=== PATIENT | female | born 1990 | race Caucasian/White ===

== ENCOUNTER 2020-08-15 15:58 | Emergency (ER) | payer BC, MEDICAID ==
[2020-08-15] MEDS ORDERED: Sodium Chloride 0.9% 1,000 ML IV ONE (16:12)
[2020-08-15 17:10] LABS: BLOOD UREA NITROGEN,BUN 7 mg/dL (7.0-18.0); CARBON DIOXIDE,CO2 25.5 mmol/L (21.0-32.0); CHLORIDE,CL 101 mmol/L (98-107); GLUCOSE RANDOM 94 mg/dL (74-106); LIPASE 49 U/L (73-393); POTASSIUM,K 4.2 mmol/L (3.5-5.1); SODIUM,NA 136 mmol/L (136-145)
--- NOTE | 2020-08-15 17:36 | US ---
INDICATION: Left-sided pain. Early TECHNIQUE: Ultrasound OB pelvis transvaginal. Real-time rouse-scale imaging of the pelvis was performed. COMPARISON: None available FINDINGS: There is an intrauterine gestational sac with a mean sac diameter corresponding to 6 weeks and 0 days. A yolk sac is seen, measuring 7 mm. No pole is seen. The right ovary measures 3.2 x 1.9 x 2.4 cm and the left ovary measures 3.3 x 3.6 x 4.2 cm, containing a 2.7 x 2.5 x 2.6 cm cyst which demonstrates apparent low-level internal echoes, likely a hemorrhagic corpus luteum cyst. Bilateral ovarian Doppler flow is documented. Tiny fluid echogenicity posterior to the lower cervix could represent free-fluid or may be related to regional bowel. IMPRESSION: An intrauterine gestational sac with a mean sac diameter corresponding to 6 weeks and 0 days. A prominent yolk sac measuring 7 mm. No pole seen. The findings could represent an anembryonic gestation or an early intrauterine gestation. Recommend correlation with beta hCG levels and a short-term follow-up study. A 2.6 cm left ovarian hemorrhagic corpus luteum cyst. Dictated by Diallo Scott MD @ Aug 15 2020 5:25PM Signed by Dr. Diallo Scott @ Aug 15 2020 5:34PM
[2020-08-15] MEDS ORDERED: Ampicillin/Sulbactam Na 1.5 GM in Sodium Chloride 0.9% 50 ML IV ONE (19:05)
--- NOTE | 2020-08-15 19:38 | EDM.PDOC ---
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 Patient states she has been having some left-sided lower pelvic discomfort and went to [place] today to be evaluated. Patient states that she did not know she was and during her evaluation today and was instructed that since she was having left lower pelvic pain she needed to get an ultrasound to rule out an ectopic . Patient denies any vaginal bleeding. Patient was given 2 mg of Dilaudid prior to leaving [place]. Patient states that she does not desire this and is requesting for me to "give her an " or "praying its an ectopic." Patient states she has also had a history of ruptured cysts in the past which felt similar to her symptoms today. Patient also complains of slight burning with urination. Denies any other symptoms or concerns. Patient denies fever, chills, chest pain, shortness of breath, or cough. Denies headache, neck stiff ness, change in vision, syncope, or near syncope. Denies nausea, vomiting, diarrhea, constipation. Has not noted any blood in urine or stool. Patient has been eating and drinking appropriately. Review of systems: As per history of present illness and below otherwise all systems reviewed and negative. Past medical history: As per history of present illness and as reviewed below otherwise noncontributory. Surgical history: As per history of present illness and as reviewed below otherwise noncontributory. Social history: See social history for further information Family history: As per history of present illness and as reviewed below otherwise noncontributory. Physical exam: General: Patient is alert, oriented, and in no acute distress. Patient laying comfortably on exam table. HEENT: Atraumatic, normocephalic, pupils equal and reactive bilaterally, negative for conjunctival pallor or scleral icterus, mucous membranes moist, TMs normal bilaterally, throat clear, neck supple, nontender, trachea midline. No drooling or trismus noted. No meningeal signs. No hot potato voice noted. Lungs: Clear to auscultation, breath sounds equal bilaterally, chest nontender. Heart: S1S2, regular rate and rhythm without overt murmur Abdomen: Soft, nondistended, nontender. Negative for masses or hepatosplenomegaly. Negative for costovertebral tenderness. Pelvis: Stable nontender. Genitourinary: Pulp Beater at bedside Shaina Mike. External genitalia grossly unremarkable. There is a small amount of white discharge in the vaginal vault. Negative cervical motion tenderness. Patient does have some mild discomfort of the left adnexa. Rectal: Deferred. Skin: Intact, warm, dry. No lesions or rashes noted. Extremities: Atraumatic, negative for cords or calf pain. Neurovascular unremarkable. Neuro: Awake, alert, oriented. Cranial nerves II through XII unremarkable. Cerebellum unremarkable. Motor and sensory unremarkable throughout. Exam nonfocal. Notes: Transvaginal ultrasound does show an intrauterine gestational sac, a prominent yolk sac, no pole seen. This could represent an early intrauterine gestation versus an embryonic gestation. Discussed with patient the importance for establishing care and following up with an PATIENT CARE TECHNICIAN INSTRUCTOR provider/ Patient is adamantly requesting me to "perform an " which I thoroughly discussed with patient that I will not be doing this today. Patient will be discharged with further information/resources in regards to this desire. Patient also has a 2.6 cm left ovarian hemorrhagic cyst. This does correlate clinically with patient's stated symptoms and mild left adnexal tenderness on exam. Hemoglobin hematocrit repeated after 4 hours and stable. Patient continually monitored throughout stay in ED and remained stable and comfortable. During discharge, spit patient states that she no longer desires an and does not request this information any longer. Had thorough discussion with patient for the importance of establishing care with an PATIENT CARE TECHNICIAN INSTRUCTOR provider. In the past, patient states she has seen Dr. Webber at [facility] with desire to follow up with her. Signs and symptoms that would prompt return to the ED thoroughly discussed with patient. Voices understanding and is agreeable to plan of care. Denies any further questions or concerns at this time. Diagnostics: CBC, CMP, UA, TVUS, Blood type, Hcg Quant (Repeat H&H after 4 hours) Therapeutics: Unasyn (patient has taken this med safely in the past), Tylenol Prescription: Augmentin, (patient has taken this medication safely in the past) Impression: Hemorrhagic cyst, left, stable Intrauterine Urinary tract infection Plan: 1. Please start and/or continue to take your vitamin with folic acid once daily. 2. Tylenol as needed for pain management. This is safe to use in . 3. Follow up/establish care with an PATIENT CARE TECHNICIAN INSTRUCTOR provider as discussed. Return to the ED as needed and as discussed. Definitive disposition and diagnosis as appropriate pending reevaluation and review of above. Abdomen Pain Score (Numeric/FACES): 9 - Related Data Allergies Allergy/AdvReac Type Severity Reaction Status Date / Time cephalexin Allergy Airway Verified 08/15/20 16:06 Tightness Home Meds: Home Meds Amoxicillin/Potassium Clav [Augmentin 500-125 Tablet] 1 each PO BID 7 Days #14 tablet 08/15/20 [Rx] ClonazePAM [KlonoPIN] 0.5 mg PO DAILY 08/15/20 [History] Cyclobenzaprine [Flexeril] 10 mg PO ASDIRECTED 08/15/20 [History] Ethinyl Estradiol/Drospirenone [Drospirenone-Ee 3-0.03 mg Tab] 1 tab PO DAILY 08/15/20 [History] Pantoprazole [ProTONIX] 40 mg PO DAILY 08/15/20 [History] Propranolol [Inderal] 10 mg PO DAILY 08/15/20 [History] Venlafaxine [Effexor XR] 150 mg PO DAILY 08/15/20 [History] amLODIPine [Norvasc] 1 tab PO DAILY 08/15/20 [History] diazePAM [Valium] 5 mg PO ASDIRECTED 08/15/20 [History] Past Medical History Cardiovascular History: Reports: Hypertension 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 ED EXAM, GENERAL - Physical Exam Exam: See Below (see dictation) Course - Vital Signs Last Recorded V/S: Last Vital Signs Temp 97.3 F 08/15/20 16:03 Pulse 103 H 08/15/20 17:24 Resp 18 08/15/20 16:23 BP 143/77 H 08/15/20 17:34 Pulse Ox 98 08/15/20 17:08 - Orders/Labs/Meds Orders: Active Orders 24 hr Category Date Time Status CULTURE URINE [RM] Stat Lab 08/15/20 16:15 Received Labs: Laboratory Tests 08/15/20 08/15/20 08/15/20 Range/Units 16:12 16:12 16:12 WBC 12.92 H (4.0-11.0) K/uL RBC 3.93 L (4.30-5.90) M/uL Hgb 12.2 (12.0-16.0) g/dL Hct 36.8 (36.0-46.0) % MCV 93.6 (80.0-98.0) fL MCH 31.0 (27.0-32.0) pg MCHC 33.2 (31.0-37.0) g/dL RDW Std Deviation 45.4 (28.0-62.0) fl RDW Coeff of Radha 13 (11.0-15.0) % Plt Count 165 (150-400) K/uL MPV 9.80 (7.40-12.00) fL Neut % (Auto) 77.2 (48.0-80.0) % Lymph % (Auto) 13.0 L (16.0-40.0) % [place] % (Auto) 9.1 (0.0-15.0) % Eos % (Auto) 0.5 (0.0-7.0) % Baso % (Auto) 0.2 (0.0-1.5) % Neut # (Auto) 10.0 H (1.4-5.7) K/uL Lymph # (Auto) 1.7 (0.6-2.4) K/uL [place] # (Auto) 1.2 H (0.0-0.8) K/uL Eos # (Auto) 0.1 (0.0-0.7) K/uL Baso # (Auto) 0.0 (0.0-0.1) K/uL Nucleated RBC % 0.0 /100WBC Nucleated RBCs # 0 K/uL Sodium 136 (136-145) mmol/L Potassium 4.2 (3.5-5.1) mmol/L Chloride 101 (98-107) mmol/L Carbon Dioxide 25.5 (21.0-32.0) mmol/L BUN 7 (7.0-18.0) mg/dL Creatinine 0.7 (0.6-1.0) mg/dL Est Cr Clr Drug Dosing 112.01 mL/min Estimated GFR (MDRD) > 60.0 ml/min Glucose 94 (74-106) mg/dL Calcium 8.6 (8.5-10.1) mg/dL Total Bilirubin 0.4 (0.2-1.0) mg/dL AST 16 (15-37) IU/L ALT 30 (14-63) IU/L Alkaline Phosphatase 65 (46-116) U/L Total Protein 7.0 (6.4-8.2) g/dL Albumin 2.9 L (3.4-5.0) g/dL Globulin 4.1 H (2.6-4.0) g/dL Albumin/Globulin Ratio 0.7 L (0.9-1.6) Lipase 49 L (73-393) U/L HCG, Quant 75119.0 mIU/mL Urine Color Urine Appearance Urine pH (5.0-8.0) Ur Specific [place] (1.001-1.035) Urine Protein (NEGATIVE) mg/dL Urine Glucose (UA) (NEGATIVE) mg/dL Urine Ketones (NEGATIVE) mg/dL Urine Occult Blood (NEGATIVE) Urine Nitrite (NEGATIVE) Urine Bilirubin (NEGATIVE) Urine Urobilinogen (<2.0) EU/dL Ur Leukocyte Esterase (NEGATIVE) Urine RBC (0-2/HPF) Urine WBC (0-5/HPF) Ur Epithelial Cells (NONE-FEW) Amorphous Sediment (NEGATIVE) Urine Bacteria (NEGATIVE) Urine Mucus (NONE-MOD) Blood Type 08/15/20 08/15/20 08/15/20 Range/Units 16:12 16:15 20:15 WBC (4.0-11.0) K/uL RBC (4.30-5.90) M/uL Hgb 11.7 L (12.0-16.0) g/dL Hct 36.0 (36.0-46.0) % MCV (80.0-98.0) fL MCH (27.0-32.0) pg MCHC (31.0-37.0) g/dL RDW Std Deviation (28.0-62.0) fl RDW Coeff of Radha (11.0-15.0) % Plt Count (150-400) K/uL MPV (7.40-12.00) fL Neut % (Auto) (48.0-80.0) % Lymph % (Auto) (16.0-40.0) % [place] % (Auto) (0.0-15.0) % Eos % (Auto) (0.0-7.0) % Baso % (Auto) (0.0-1.5) % Neut # (Auto) (1.4-5.7) K/uL Lymph # (Auto) (0.6-2.4) K/uL [place] # (Auto) (0.0-0.8) K/uL Eos # (Auto) (0.0-0.7) K/uL Baso # (Auto) (0.0-0.1) K/uL Nucleated RBC % /100WBC Nucleated RBCs # K/uL Sodium (136-145) mmol/L Potassium (3.5-5.1) mmol/L Chloride (98-107) mmol/L Carbon Dioxide (21.0-32.0) mmol/L BUN (7.0-18.0) mg/dL Creatinine (0.6-1.0) mg/dL Est Cr Clr Drug Dosing mL/min Estimated GFR (MDRD) ml/min Glucose (74-106) mg/dL Calcium (8.5-10.1) mg/dL Total Bilirubin (0.2-1.0) mg/dL AST (15-37) IU/L ALT (14-63) IU/L Alkaline Phosphatase (46-116) U/L Total Protein (6.4-8.2) g/dL Albumin (3.4-5.0) g/dL Globulin (2.6-4.0) g/dL Albumin/Globulin Ratio (0.9-1.6) Lipase (73-393) U/L HCG, Quant mIU/mL Urine Color YELLOW Urine Appearance CLEAR Urine pH 6.0 (5.0-8.0) Ur Specific [place] 1.015 (1.001-1.035) Urine Protein 30 H (NEGATIVE) mg/dL Urine Glucose (UA) NEGATIVE (NEGATIVE) mg/dL Urine Ketones NEGATIVE (NEGATIVE) mg/dL Urine Occult Blood MODERATE H (NEGATIVE) Urine Nitrite NEGATIVE (NEGATIVE) Urine Bilirubin NEGATIVE (NEGATIVE) Urine Urobilinogen 1.0 (<2.0) EU/dL Ur Leukocyte Esterase MODERATE H (NEGATIVE) Urine RBC 2-3 (0-2/HPF) Urine WBC 20-35 (0-5/HPF) Ur Epithelial Cells OCCASIONAL (NONE-FEW) Amorphous Sediment RARE (NEGATIVE) Urine Bacteria FEW (NEGATIVE) Urine Mucus RARE (NONE-MOD) Blood Type A POSITIVE Meds: Medications Discontinued Medications Generic Name Dose Route Start Last Admin Trade Name Freq PRN Reason Stop Dose Admin Acetaminophen 1,000 mg 08/15/20 20:24 08/15/20 20:45 Tylenol Extra Strength PO 08/15/20 20:25 1,000 mg ONETIME ONE Administration Sodium Chloride 1,000 mls @ 999 mls/hr 08/15/20 16:12 08/15/20 16:18 Normal Saline IV 08/15/20 17:12 999 mls/hr STAT ONE Administration Ampicillin Sodium/Sulbactam 50 mls @ 150 mls/hr 08/15/20 19:05 08/15/20 19:58 Sodium 1.5 gm/ Sodium Chloride IV 08/15/20 19:24 100 mls/hr ONETIME ONE Administration Departure - Departure Time of Disposition: 21:20 Disposition: Home, Self-Care 01 Clinical Impression: Hemorrhagic ovarian cyst, Intrauterine Urinary tract infection Qualifiers: Urinary tract infection type: acute cystitis Hematuria presence: without hematuria Qualified Code(s): N30.00 - Acute cystitis without hematuria - Discharge Information Prescriptions: Amoxicillin/Potassium Clav [Augmentin 500-125 Tablet] 1 each PO BID 7 Days #14 tablet Instructions: First Trimester of , [id number], Urinary Tract Infection, Adult, [id number], Ovarian Cyst, [id number] Referrals: PCP,None [Primary Care Provider] - Forms: ED Department Discharge Additional Instructions: The following information is given to patients seen in the emergency department who are being discharged to home. This information is to outline your options for follow-up care. We provide all patients seen in our emergency department with a follow-up referral. The need for follow-up, as well as the timing and circumstances, are variable depending upon the specifics of your emergency department visit. If you don't have a primary care physician on staff, we will provide you with a referral. We always advise you to contact your personal physician following an emergency department visit to inform them of the circumstance of the visit and for follow-up with them and/or the need for any referrals to a consulting specialist. The emergency department will also refer you to a specialist when appropriate. This referral assures that you have the opportunity for follow-up care with a specialist. All of these measure are taken in an effort to provide you with optimal care, which includes your follow-up. Under all circumstances we always encourage you to contact your private physician who remains a resource for coordinating your care. When calling for follow-up care, please make the office aware that this follow-up is from your recent emergency room visit. If for any reason you are refused follow-up, please contact the [facility] Emergency Department at and asked to speak to the emergency department charge nurse. [facility] [address] [place] [address] [place] [address] [facility] [address], [place] [address] 1. Please start and/or continue to take your vitamin with folic acid once daily. 2. Tylenol as needed for pain management. This is safe to use in . 3. Follow up/establish care with an PATIENT CARE TECHNICIAN INSTRUCTOR provider as discussed. Return to the ED as needed and as discussed. Sepsis Event Note (ED) - Evaluation Sepsis Screening Result: No Definite Risk - Focused Exam Vital Signs: Vital Signs Temp Pulse Resp BP Pulse Ox 08/15/20 17:34 143/77 H 08/15/20 17:24 103 H 130/59 L 08/15/20 17:08 93 117/61 98 08/15/20 16:38 120/77 08/15/20 16:23 95 18 121/65 97 08/15/20 16:03 97.3 F 95 18 119/69 99 - My Orders Last 24 Hours: My Active Orders 08/15/20 16:15 CULTURE URINE [RM] Stat - Assessment/Plan Last 24 Hours: My Active Orders 08/15/20 16:15 CULTURE URINE [RM] Stat
[2020-08-15] MEDS ORDERED: Acetaminophen 500 MG Tab PO ONE (20:24)
== END 2020-08-15 20:49 | disposition home or self-care (01) ==
LOC: MW.ED 15:58
DX: O34.81 Maternal care for other abnormalities of pelvic organs, first trimester (principal); N83.202 Unspecified ovarian cyst, left side; O23.11 Infections of bladder in pregnancy, first trimester; O99.331 Smoking (tobacco) complicating pregnancy, first trimester; F17.210 Nicotine dependence, cigarettes, uncomplicated; Z88.1 Allergy status to other antibiotic agents
CPT/HCPCS: 36415; 76801; 80053; 81001; 83690; 84702; 85014; 85018; 85025; 86900; 86901; 87086; 87088; 87186; 96361; 96365; 99284; A9270; J0295; J7030; J7050; 99283

== ENCOUNTER 2020-09-10 12:19 | Day surgery (SDC) | payer MEDICAID ==
[~2020-09-10 12:19] MED LIST: Sodium Chloride 0.9% 10 ML SDV IV PRN; Sodium Chloride 0.9% 10 ML Syringe FLUSH PRN; Sodium Chloride 0.9% 2.5 ML Syringe FLUSH PRN
[2020-09-10] MEDS ORDERED: Ondansetron 4 MG/2 ML SDV ONE (15:14)
[2020-09-10] MEDS ORDERED: Propofol 200 MG/20 ML SDV ONE (15:14)
[2020-09-10] MEDS ORDERED: Lidocaine 1% 20 ML MDV ONE (15:14)
[2020-09-10] MEDS ORDERED: Lidocaine 2% 5 ML SDV ONE (15:14)
[2020-09-10] MEDS ORDERED: Midazolam 1 MG/ML 2 ML SDV ONE ×3 (16:07→17:14)
[2020-09-10] MEDS ORDERED: fentaNYL 100 MCG/2 ML SDV ONE (16:09)
[2020-09-10] MEDS ORDERED: Ketorolac 30 MG/ML SDV ONE (16:09)
[2020-09-10] MEDS ORDERED: Glycopyrrolate 0.2 MG/ML SDV ONE (16:09)
[2020-09-10] MEDS ORDERED: Chloroprocaine 10 MG/ML 5 ML Amp ONE (16:50)
--- NOTE | 2020-09-10 16:57 | PCM.PREANE ---
Preanesthetic Assessment - Anesthesia/Transfusion/Family Hx Anesthesia History: Prior Anesthesia Without Reaction Family History of Anesthesia Reaction: No Transfusion History: No Prior Transfusion(s) - Review of Systems General: No Symptoms Pulmonary: No Symptoms Cardiovascular: No Symptoms Gastrointestinal: No Symptoms Neurological: No Symptoms Other: Reports: None - Physical Assessment NPO Status Date: 09/09/20 Vital Signs: Last Vital Signs Temp 97.3 F 09/10/20 14:41 Pulse 73 09/10/20 14:41 Resp 15 09/10/20 14:41 BP 135/78 09/10/20 14:41 Pulse Ox 100 09/10/20 14:41 Height: 5 ft 5.25 in Weight: 90.718 kg ASA Class: 2 Mental Status: Alert & Oriented x3 - Lab Values: Laboratory Last Values WBC 7.18 K/uL (4.0-11.0) 09/10/20 15:30 RBC 4.33 M/uL (4.30-5.90) 09/10/20 15:30 Hgb 13.1 g/dL (12.0-16.0) 09/10/20 15:30 Hct 38.9 % (36.0-46.0) 09/10/20 15:30 MCV 89.8 fL (80.0-98.0) 09/10/20 15:30 MCH 30.3 pg (27.0-32.0) 09/10/20 15:30 MCHC 33.7 g/dL (31.0-37.0) 09/10/20 15:30 RDW Std Deviation 40.3 fl (28.0-62.0) 09/10/20 15:30 RDW Coeff of Radha 12 % (11.0-15.0) 09/10/20 15:30 Plt Count 190 K/uL (150-400) 09/10/20 15:30 MPV 9.60 fL (7.40-12.00) 09/10/20 15:30 Nucleated RBC % 0.0 /100WBC 09/10/20 15:30 Nucleated RBCs # 0 K/uL 09/10/20 15:30 SARS-CoV-2 RNA (GALILEO) POSITIVE (NEGATIVE) H 09/10/20 12:25 - Allergies Allergies/Adverse Reactions: Allergies Allergy/AdvReac Type Severity Reaction Status Date / Time cephalexin Allergy Airway Verified 09/09/20 08:41 Tightness - Blood Blood Available: No - Anesthesia Plan Pre-Op Medication Ordered: None - Acknowledgements Anesthesia Type Planned: Spinal Pt an Appropriate Candidate for the Planned Anesthesia: Yes Alternatives and Risks of Anesthesia Discussed w Pt/Guardian: Yes Pt/Guardian Understands and Agrees with Anesthesia Plan: Yes Additional Comments: PMH: covid pos, htn, gerd, missed Ab PLAN: spinal with chloroprocain, versed sedation prior to spinal placement PreAnesthesia Questionnaire HEENT History: Reports: Other (See Below) Other HEENT History: glasses Cardiovascular History: Reports: Hypertension, Other (See Below) Other Cardiovascular History: HTN in the past, has not taken BP meds since August 15 Respiratory History: Reports: None Gastrointestinal History: Reports: GERD Genitourinary History: Reports: None 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 , Musculoskeletal History: Reports: None Neurological History: Reports: None Psychiatric History: Reports: Anxiety, Depression Endocrine/Metabolic History: Reports: Obesity/BMI 30+ Hematologic History: Reports: None Immunologic History: Reports: None Oncologic (Cancer) History: Reports: None Dermatologic History: Reports: None - Infectious Disease History Infectious Disease History: Reports: None - Past Surgical History Head Surgeries/Procedures: Reports: None HEENT Surgical History: Reports: None, Tonsillectomy Cardiovascular Surgical History: Reports: None Respiratory Surgical History: Reports: None GI Surgical History: Reports: Hernia, Abdominal Other GI Surgeries/Procedures: hx umbilical hernia repair Female Surgical History: Reports: Other (See Below) Other Female Surgeries/Procedures: laparoscopy for ectopic Endocrine Surgical History: Reports: None Neurological Surgical History: Reports: None Musculoskeletal Surgical History: Reports: None Oncologic Surgical History: Reports: None Dermatological Surgical History: Reports: None - SUBSTANCE USE Tobacco Use Status *Q: Current Every Day Tobacco User Tobacco Use Within Last Twelve Months: Cigarettes - HOME MEDS Home Medications: Home Meds Pantoprazole Sodium [Protonix] 1 tab PO DAILY PRN 09/09/20 [History] - CURRENT (IN HOUSE) MEDS Current Meds: Current Medications Sodium Chloride (Saline Flush) 10 ml FLUSH ASDIRECTED PRN PRN Reason: Keep Vein Open Sodium Chloride (Saline Flush) 2.5 ml FLUSH ASDIRECTED PRN PRN Reason: Keep Vein Open Sodium Chloride (Normal Saline) 10 ml IV ASDIRECTED PRN PRN Reason: IV Use Discontinued Medications Chloroprocaine HCl (Clorotekal) Confirm Administered Dose 5 ml .ROUTE .STK-MED ONE Stop: 09/10/20 16:51 Fentanyl (Sublimaze) Confirm Administered Dose 100 mcg .ROUTE .STK-MED ONE Stop: 09/10/20 16:10 Glycopyrrolate (Robinul) Confirm Administered Dose 0.2 mg .ROUTE .STK-MED ONE Stop: 09/10/20 16:10 Ketorolac Tromethamine (Toradol) Confirm Administered Dose 30 mg .ROUTE .STK-MED ONE Stop: 09/10/20 16:10 Lidocaine (Xylocaine-Mpf 2%) Confirm Administered Dose 5 ml .ROUTE .STK-MED ONE Stop: 09/10/20 15:15 Lidocaine HCl (Xylocaine 1%) Confirm Administered Dose 20 ml .ROUTE .STK-MED ONE Stop: 09/10/20 15:15 Midazolam HCl (Versed 1 Mg/Ml) Confirm Administered Dose 2 mg .ROUTE .STK-MED ONE Stop: 09/10/20 16:08 Midazolam HCl (Versed 1 Mg/Ml) Confirm Administered Dose 2 mg .ROUTE .STK-MED ONE Stop: 09/10/20 16:10 Ondansetron HCl (Zofran) Confirm Administered Dose 4 mg .ROUTE .STK-MED ONE Stop: 09/10/20 15:15 Propofol (Diprivan 20 Ml) Confirm Administered Dose 200 mg .ROUTE .STK-MED ONE Stop: 09/10/20 15:15
[2020-09-10] MEDS ORDERED: Lactated Ringers 1,000 ML IV SCH (17:15)
[2020-09-10] MEDS ORDERED: fentaNYL 250 MCG/5 ML SDV ONE (17:30)
--- NOTE | 2020-09-10 17:45 | PCM.OPNOTE ---
- General Post-Op/Procedure Note Date of Surgery/Procedure: 09/10/20 Operative Procedure(s): Suction D&C Findings: Products of conception Pre Op Diagnosis: Missed Post-Op Diagnosis: Same Anesthesia Technique: Spinal Primary Surgeon: Kelsey Webber Pathology: Products of conception Fluid Replacement, Intraop: 750 EBL in mLs: 100 Complications: none known Condition: Stable Free Text/Narrative:: Dictation [id number]
--- NOTE | 2020-09-10 18:09 | PCM.POSTAN ---
POST ANESTHESIA ASSESSMENT - MENTAL STATUS Mental Status: Alert - VITAL SIGNS Vital Signs: Last Vital Signs Temp 36.5 C 09/10/20 17:45 Pulse 63 09/10/20 17:55 Resp 14 09/10/20 17:55 BP 108/58 L 09/10/20 17:55 Pulse Ox 100 09/10/20 17:55 - RESPIRATORY Respiratory Status: Respiratory Rate WNL - CARDIOVASCULAR CV Status: Pulse Rate WNL - GASTROINTESTINAL GI Status: No Symptoms - POST OP HYDRATION Hydration Status: Adequate & Stable
[2020-09-10] MEDS ORDERED: Acetaminophen/oxyCODONE 325-5 MG Tab PO PRN (18:41)
[2020-09-10] MEDS ORDERED: Acetaminophen/oxyCODONE 325-5 MG Tab ONE (18:44)
--- NOTE | 2020-09-10 18:55 | PCM48HPAN ---
Post Anesthesia Note - EVALUATION WITHIN 48HRS OF ANESTHETIC Vital Signs in Normal Range: Yes Patient Participated in Evaluation: Yes Respiratory Function Stable: Yes Airway Patent: Yes Cardiovascular Function Stable: Yes Hydration Status Stable: Yes Pain Control Satisfactory: Yes Nausea and Vomiting Control Satisfactory: Yes Mental Status Recovered: Yes Vital Signs: Last Vital Signs Temp 36.5 C 09/10/20 17:45 Pulse 63 09/10/20 17:55 Resp 14 09/10/20 17:55 BP 108/58 L 09/10/20 17:55 Pulse Ox 100 09/10/20 17:55
--- NOTE | 2020-09-10 23:39 | OR ---
SURGEON: Kelsey Webber M.D. DATE OF PROCEDURE: 09/10/2020 PREOPERATIVE DIAGNOSIS: Missed . POSTOPERATIVE DIAGNOSIS: Missed . PROCEDURE: Suction Dilation and curettage PRIMARY SURGEON: Kelsey Webber M.D. ANESTHESIA: Spinal. ESTIMATED BLOOD LOSS: 100 mL. FLUIDS: 750 mL crystalloid. COMPLICATIONS: None known. FINDINGS: Products of conception. DISPOSITION: The patient to PACU, stable. INDICATION: Verónica is a 30-year-old female who was recently evaluated in clinic for a new OB visit. At that time, she was found to have an abnormal first-trimester ultrasound with a tachycardic irregular heartbeat for the embryo and a very large yolk sac, irregular gestational sac. Therefore, she was followed with serial quant HCGs. It was noted within the next couple of days that they began falling, and a followup ultrasound confirmed an approximately 6-week demise. Given these findings, options were discussed with the patient. She would like to proceed with surgical intervention. On the day of the schedule suction D and C, she did have COVID screening which was positive. She was asymptomatic. She was afebrile. Given this information, options were discussed with her. She still would like to proceed with the suction D and C. We would plan regional anesthesia as to not intubate the patient. Risks of procedure were once again discussed with her in the face of COVID. PROCEDURE IN DETAIL: The patient was taken to the operating room, where she underwent spinal anesthetic, was placed in the dorsal supine position initially and then modified to dorsal lithotomy position. She was prepped and draped in the usual sterile fashion. All staff were in personal protective equipment per protocol. A time-out was performed. A speculum was introduced into the vagina. The anterior lip of the cervix was grasped with an Allis clamp. The cervix was gently dilated to 8 mm. An 8 mm suction curette was introduced to the fundus. Suction was applied and the uterine cavity was evacuated of products of conception. Once I felt that adequate evacuation had taken place, a sharp gentle curettage was performed. All specimens will be sent to Pathology. Hemostasis appeared evident. All instruments were removed from the vagina. The patient will remain in the OR for recovery. Sponge and instrument count was correct. SOLBSAR / MODL /[id number] KEITH
== END 2020-09-10 20:05 | disposition home or self-care (01) ==
LOC: MW.SDS 12:19
PROVIDERS: ATTEND Obstetrics & Gynecology
DX: O02.1 Missed abortion (principal); U07.1 COVID-19; F41.9 Anxiety disorder, unspecified; F32.9 Major depressive disorder, single episode, unspecified; I10 Essential (primary) hypertension; Z87.891 Personal history of nicotine dependence; Z88.8 Allergy status to other drugs, medicaments and biological substances; Z98.890 Other specified postprocedural states
CPT/HCPCS: 36415; 59820; 85027; 87635; 88305; A9270; J1885; J2001; J2250; J2400; J2405; J2704; J3010; J3490; U0002

== ENCOUNTER 2021-11-13 07:27 | Inpatient (IN) | payer MEDICAID ==
[2021-11-13] MEDS ORDERED: Butorphanol 1 MG/ML SDV IVPUSH PRN (07:38)
[2021-11-13] MEDS ORDERED: Methylergonovine 0.2 MG/1 ML Amp IM PRN (07:38)
[2021-11-13] MEDS ORDERED: Sodium Chloride 0.9% 20 ML SDV IV PRN (07:38)
[2021-11-13] MEDS ORDERED: Sodium Chloride 0.9% 10 ML Syringe FLUSH PRN (07:38)
[2021-11-13] MEDS ORDERED: Water For Irrigation,Sterile 1,000 ML Container IRR PRN (07:38)
[2021-11-13] MEDS ORDERED: Lidocaine 1% 20 ML MDV INJECT PRN (07:38)
[2021-11-13] MEDS ORDERED: Tranexamic Acid 1,000 MG in Sodium Chloride 0.9% 100 ML IV PRN (07:38)
[2021-11-13] MEDS ORDERED: Terbutaline 1 MG/ML SDV SUBCUT PRN (07:38)
[2021-11-13] MEDS ORDERED: Carboprost Tromethamine 250 MCG/1 ML Amp IM PRN (07:38)
[2021-11-13] MEDS ORDERED: Sodium Chloride 0.9% 2.5 ML Syringe FLUSH PRN (07:38)
[2021-11-13] MEDS ORDERED: Misoprostol 200 MCG Tab PO PRN (07:38)
[2021-11-13] MEDS ORDERED: Oxytocin/0.9 % Sodium Chloride 30 UNIT/500 ML BAG IV SCH ×2 (07:45)
[2021-11-13] MEDS ORDERED: Ampicillin 2 GM in Sodium Chloride 0.9% 100 ML IV ONE (08:00)
[2021-11-13] MEDS: Lactated Ringers 1,000 ML IV SCH ×3 (08:30→16:15)
--- NOTE | 2021-11-13 12:45 | PCM.PREANE ---
Preanesthetic Assessment - Procedure Proposed Procedure: Labor Epidural - Anesthesia/Transfusion/Family Hx Anesthesia History: Prior Anesthesia Without Reaction Family History of Anesthesia Reaction: No Transfusion History: No Prior Transfusion(s) - Review of Systems General: No Symptoms Pulmonary: No Symptoms Cardiovascular: Other (Hypertension) Gastrointestinal: Other (GERD and Nausea) Neurological: No Symptoms, Other (Anxiety) Other: Reports: None (Anemia) - Physical Assessment NPO Status Date: 11/13/21 NPO Status Time: 12:00 ASA Class: 2 Mental Status: Alert & Oriented x3 Airway Class: Mallampati = 2 Dentition: Reports: Normal Dentition Thyro-Mental Finger Breadths: 3 Mouth Opening Finger Breadths: 3 ROM/Head Extension: Full Lungs: Clear to Auscultation, Normal Respiratory Effort Cardiovascular: Regular Rate, Regular Rhythm - Lab Values: Laboratory Last Values WBC 8.62 K/uL (4.0-11.0) 11/13/21 08:18 RBC 3.88 M/uL (4.30-5.90) L 11/13/21 08:18 Hgb 11.6 g/dL (12.0-16.0) L 11/13/21 08:18 Hct 34.3 % (36.0-46.0) L 11/13/21 08:18 MCV 88.4 fL (80.0-98.0) 11/13/21 08:18 MCH 29.9 pg (27.0-32.0) 11/13/21 08:18 MCHC 33.8 g/dL (31.0-37.0) 11/13/21 08:18 RDW Std Deviation 47.2 fl (28.0-62.0) 11/13/21 08:18 RDW Coeff of Radha 15 % (11.0-15.0) 11/13/21 08:18 Plt Count 228 K/uL (150-400) 11/13/21 08:18 MPV 9.90 fL (7.40-12.00) 11/13/21 08:18 Nucleated RBC % 0.0 /100WBC 11/13/21 08:18 Nucleated RBCs # 0 K/uL 11/13/21 08:18 SARS-CoV-2 RNA (GALILEO) NEGATIVE (NEGATIVE) 11/13/21 08:25 Blood Type A POSITIVE 11/13/21 08:18 Antibody Screen NEGATIVE 11/13/21 08:18 - Allergies Allergies/Adverse Reactions: Allergies Allergy/AdvReac Type Severity Reaction Status Date / Time cephalexin Allergy Airway Verified 11/04/21 17:21 Tightness - Blood Blood Available: Yes Product(s) Available: PRBC (Type and screen) - Anesthesia Plan Pre-Op Medication Ordered: None - Acknowledgements Anesthesia Type Planned: Epidural Pt an Appropriate Candidate for the Planned Anesthesia: Yes Alternatives and Risks of Anesthesia Discussed w Pt/Guardian: Yes Pt/Guardian Understands and Agrees with Anesthesia Plan: Yes PreAnesthesia Questionnaire HEENT History: Reports: Other (See Below) Other HEENT History: glasses Cardiovascular History: Reports: Hypertension, Other (See Below) Other Cardiovascular History: HTN in the past, has not taken BP meds since August 15 Respiratory History: Reports: None Gastrointestinal History: Reports: GERD Genitourinary History: Reports: None [employer] History: Reports: Ectopic , Musculoskeletal History: Reports: None Neurological History: Reports: None Psychiatric History: Reports: Anxiety, Depression Endocrine/Metabolic History: Reports: Obesity/BMI 30+ Hematologic History: Reports: None Immunologic History: Reports: None Oncologic (Cancer) History: Reports: None Dermatologic History: Reports: None - Infectious Disease History Infectious Disease History: Reports: None - Past Surgical History Head Surgeries/Procedures: Reports: None HEENT Surgical History: Reports: None, Tonsillectomy Cardiovascular Surgical History: Reports: None Respiratory Surgical History: Reports: None GI Surgical History: Reports: Hernia, Abdominal Other GI Surgeries/Procedures: hx umbilical hernia repair Female Surgical History: Reports: Other (See Below) Other Female Surgeries/Procedures: laparoscopy for ectopic Endocrine Surgical History: Reports: None Neurological Surgical History: Reports: None Musculoskeletal Surgical History: Reports: None Oncologic Surgical History: Reports: None Dermatological Surgical History: Reports: None - HOME MEDS Home Medications: Home Meds Aspirin 81 mg PO DAILY 09/29/21 [History] Labetalol [Normodyne] 100 mg PO BID 09/29/21 [History] Pantoprazole Sodium [Protonix] 20 mg PO DAILY 09/29/21 [History] Pnv No.95/Ferrous Fum/Folic AC [ Multivitamin Tablet] 1 each PO DAILY 09/29/21 [History] Sertraline [Zoloft] 50 mg PO DAILY 09/29/21 [History] ondansetron HCL [Zofran] 4 mg PO Q8HR PRN 09/29/21 [History] - CURRENT (IN HOUSE) MEDS Current Meds: Current Medications Butorphanol Tartrate (Butorphanol 1 Mg/Ml Sdv) 1 mg IVPUSH Q1H PRN PRN Reason: Pain (severe 7-10) Carboprost Tromethamine (Carboprost Tromethamine 250 Mcg/1 Ml Amp) 250 mcg IM ASDIRECTED PRN PRN Reason: Post Hemorrhage Oxytocin/Sodium Chloride (Oxytocin 30 Unit In Ns 0.9% 500 Ml Premix) 30 unit in 500 mls @ 999 mls/hr IV TITRATE JOEL Tranexamic Acid 1,000 mg/ (Sodium Chloride) 110 mls @ 660 mls/hr IV ONETIME PRN PRN Reason: Bleeding Oxytocin/Sodium Chloride (Oxytocin 30 Unit In Ns 0.9% 500 Ml Premix) 30 unit in 500 mls @ 2 mls/hr IV TITRATE JOEL; Protocol Last Admin: 11/13/21 08:46 Dose: 2 munits/min, 2 mls/hr Documented by: Ampicillin Sodium 1 gm/ Sodium (Chloride) 50 mls @ 100 mls/hr IV Q4H JOEL Lactated Ringer's (Ringers, Lactated) 1,000 mls @ 150 mls/hr IV ASDIRECTED JOEL Last Infusion: 11/13/21 08:43 Dose: 150 mls/hr Documented by: Lidocaine HCl (Lidocaine 1% 20 Ml Mdv) 40 ml INJECT ONETIME PRN PRN Reason: Laceration repair Methylergonovine Maleate (Methylergonovine 0.2 Mg/1 Ml Amp) 0.2 mg IM ASDIRECTED PRN PRN Reason: Post Hemorrhage Misoprostol (Misoprostol 200 Mcg Tab) 200 mcg PO ONETIME PRN PRN Reason: Post Hemorrhage Ondansetron HCl (Ondansetron 4 Mg/2 Ml Sdv) 4 mg IVPUSH Q6H PRN PRN Reason: Nausea/Vomiting Sodium Chloride (Sodium Chloride 0.9% 10 Ml Syringe) 10 ml FLUSH ASDIRECTED PRN PRN Reason: Keep Vein Open Sodium Chloride (Sodium Chloride 0.9% 2.5 Ml Syringe) 2.5 ml FLUSH ASDIRECTED PRN PRN Reason: Keep Vein Open Sodium Chloride (Sodium Chloride 0.9% 20 Ml Sdv) 10 ml IV ASDIRECTED PRN PRN Reason: IV Use Sterile Water (Water For Irrigation,Sterile 1,000 Ml Container) 1,000 ml IRR ASDIRECTED PRN PRN Reason: delivery Terbutaline Sulfate (Terbutaline 1 Mg/Ml Sdv) 0.25 mg SUBCUT ASDIRECTED PRN PRN Reason: Tacysystole Discontinued Medications Ampicillin Sodium 2 gm/ Sodium (Chloride) 100 mls @ 200 mls/hr IV ONETIME ONE Stop: 11/13/21 08:29 Last Admin: 11/13/21 08:40 Dose: 200 mls/hr Documented by:
[2021-11-13] MEDS: Ampicillin 1 GM in Sodium Chloride 0.9% 50 ML IV SCH ×3 (12:58→21:00)
[2021-11-13] MEDS ORDERED: Ropivacaine HCl/PF 100 ML ONE (13:54)
[2021-11-13] MEDS ORDERED: ePHEDrine 50 MG/ML SDV IVPUSH PRN (14:09)
--- NOTE | 2021-11-13 14:09 | PCM.SN.2 ---
- Pre-Procedure Checklist Attending Provider Aware: Yes Chart Reviewed: Yes Consent Signed: Yes Labs Reviewed: Yes VS/FHR Reviewed: Yes Patient Identification Confirmation Method: Reports: Chart Visual, Verbal Patient Pt an Appropriate Candidate for the Planned Anesthesia: Yes Alternatives and Risks of Anesthesia Discussed w Pt/Guardian: Yes - Procedure Procedure Start Date: 11/13/21 Procedure Start Time: 13:[address]: Reports: Blood Pressure, Heart Rate, SPO2 Functional IV: Yes Bolus Infused (fluid type and amount): 1000 ml LR Safety Measures: Reports: Patient Identified, Procedure Verified, Site Verified, Procedure Time Out Patient Position: Reports: Sitting Prep: Reports: Betadine x3 Local Anesthetic: Reports: Intradermal Wheal w Lidocaine 1% (3 ml) Regional Placement Level: Reports: L3-4 Needle: Reports: 17 g Touhy Approach: Reports: Midline Technique: Reports: RAYNA Glass Syringe RAYNA Needle Depth (cm): 8 cm Parasthesia: Reports: None Fluid Obtained: Reports: None Catheter Depth at Skin (cm): 16 cm Test Dose Time: 13:48 Test Dose Medication: Reports: Lidocaine 1.5% w Epinephrine 1:200,000 (5 ml) Test Dose Response: Reports: Negative Loading Dose Time: 14:00 Loading Dose Medication: Ropivicaine 0.2% Loading Dose Patient Position: Supine Continuous Infusion Start Time: 14:01 Continuous Infusion Medication: Ropivicaine 0.2% Continuous Infusion Rate: 14 Continuous Infusion PCS Bolus Option: 6 Continuous Infusion Lockout Dose (cc/hr): 15 (min lockout) Patient Position Post Placement: Reports: Supine Post-procedure Pain Level: See post note Level Achieved: See post note VS and FHR Monitored in Unit Post Placement: Yes Procedure End Date: 11/13/21 Procedure End Time: 14:36 Procedure Comment: Sterile technigue maintained throughout.
--- NOTE | 2021-11-13 14:15 | PCM.POSTAN ---
POST ANESTHESIA ASSESSMENT - MENTAL STATUS Mental Status: Alert, Oriented - RESPIRATORY Respiratory Status: Respiratory Rate WNL, Airway Patent, O2 Saturation Stable - CARDIOVASCULAR CV Status: Pulse Rate WNL, Blood Pressure Stable - GASTROINTESTINAL GI Status: No Symptoms - POST OP HYDRATION Hydration Status: Adequate & Stable - OBSERVATIONS Free Text/Narrative:: Pain decreased to 3/10
[2021-11-13] MEDS ORDERED: Acetaminophen 500 MG Tab PO ONE (19:43)
[2021-11-13] MEDS ORDERED: Acetaminophen 500 MG Tab ONE (19:46)
[2021-11-13] MEDS: Ondansetron 4 MG/2 ML SDV IVPUSH PRN (19:48)
[2021-11-13] MEDS: Ropivacaine HCl/PF 200 MG in Premix Bag 1 BAG EPIDUR SCH (20:18)
[2021-11-13] MEDS ORDERED: Acetaminophen 500 MG Tab PO PRN (23:55)
[2021-11-14] MEDS: Lactated Ringers 1,000 ML IV SCH (00:47)
[2021-11-14] MEDS: Ampicillin 1 GM in Sodium Chloride 0.9% 50 ML IV SCH ×3 (00:52→14:27)
[2021-11-14] MEDS: Ropivacaine HCl/PF 200 MG in Premix Bag 1 BAG EPIDUR SCH (02:02)
[2021-11-14] MEDS: Ondansetron 4 MG/2 ML SDV IVPUSH PRN (03:16)
[2021-11-14] MEDS ORDERED: Benzocaine/Menthol 20%-0.5% Spray 78 GM Cannister TOP PRN (05:46)
[2021-11-14] MEDS ORDERED: Lanolin 100% Cream 7 GM Tube TOP PRN (05:46)
[2021-11-14] MEDS ORDERED: Ibuprofen 400 MG Tab PO PRN (05:46)
[2021-11-14] MEDS ORDERED: Acetaminophen 500 MG Tab PO PRN (05:46)
[2021-11-14] MEDS ORDERED: Bisacodyl 10 MG Supp RECTAL PRN (05:46)
[2021-11-14] MEDS ORDERED: Witch Hazel Medicated Pads 40/Jar TOP PRN (05:46)
--- NOTE | 2021-11-14 05:55 | PCM.DEL ---
L & D Note - General Info Date of Service: 11/14/21 Mother's Due Date: 11/20/21 - Delivery Note Labor: Augmented by ARM, Augmented by Oxytocin Delivery Outcome: Livebirth Delivery Method: Spontaneous Vaginal Delivery-Single Presentation: Left Occiput Anterior (MONA) Nuchal Cord: None Anesthesia Type: Epidural Amniotic Fluid Description: Clear Episiotomy Type: None Laceration: None Placenta: Intact, Spontaneous Cord: 3 Vessels Estimated Blood Loss: 300 Resuscitation Needed: No : Bulb Syringe, Stimulated, Warmed Provider: Kelsey Webber Score 1 min: 7 Score 5 min: 9 Delivery Comments (Free Text/Narrative):: Dictation #[id number] - General Info Date of Service: 11/14/21 - Patient Data Vitals - Most Recent: Last Vital Signs Temp Pulse Resp 20 11/14/21 01:07 BP Pulse Ox Weight - Most Recent: 228 lb Lab Results Last 24 Hours: Laboratory Results - last 24 hr 11/13/21 11/13/21 11/13/21 Range/Units 08:18 08:18 08:25 WBC 8.62 (4.0-11.0) K/uL RBC 3.88 L (4.30-5.90) M/uL Hgb 11.6 L (12.0-16.0) g/dL Hct 34.3 L (36.0-46.0) % MCV 88.4 (80.0-98.0) fL MCH 29.9 (27.0-32.0) pg MCHC 33.8 (31.0-37.0) g/dL RDW Std Deviation 47.2 (28.0-62.0) fl RDW Coeff of Radha 15 (11.0-15.0) % Plt Count 228 (150-400) K/uL MPV 9.90 (7.40-12.00) fL Nucleated RBC % 0.0 /100WBC Nucleated RBCs # 0 K/uL SARS-CoV-2 RNA (GALILEO) NEGATIVE (NEGATIVE) Blood Type A POSITIVE Antibody Screen NEGATIVE Med Orders - Current: Current Medications Acetaminophen (Acetaminophen 500 Mg Tab) 1,000 mg PO Q6H PRN PRN Reason: Headache Last Admin: 11/14/21 00:03 Dose: 1,000 mg Documented by: Butorphanol Tartrate (Butorphanol 1 Mg/Ml Sdv) 1 mg IVPUSH Q1H PRN PRN Reason: Pain (severe 7-10) Carboprost Tromethamine (Carboprost Tromethamine 250 Mcg/1 Ml Amp) 250 mcg IM ASDIRECTED PRN PRN Reason: Post Hemorrhage Ephedrine Sulfate (Ephedrine 50 Mg/Ml Sdv) 10 mg IVPUSH Q1M PRN PRN Reason: Hypotension Oxytocin/Sodium Chloride (Oxytocin 30 Unit In Ns 0.9% 500 Ml Premix) 30 unit in 500 mls @ 999 mls/hr IV TITRATE [facility] Tranexamic Acid 1,000 mg/ (Sodium Chloride) 110 mls @ 660 mls/hr IV ONETIME PRN PRN Reason: Bleeding Oxytocin/Sodium Chloride (Oxytocin 30 Unit In Ns 0.9% 500 Ml Premix) 30 unit in 500 mls @ 2 mls/hr IV TITRATE [facility]; Protocol Last Titration: 11/14/21 03:52 Dose: 26 munits/min, 26 mls/hr Documented by: Ampicillin Sodium 1 gm/ Sodium (Chloride) 50 mls @ 100 mls/hr IV Q4H [facility] Last Admin: 11/14/21 05:05 Dose: 100 mls/hr Documented by: Lactated Ringer's (Ringers, Lactated) 1,000 mls @ 150 mls/hr IV ASDIRECTED [facility] Last Admin: 11/14/21 00:47 Dose: 150 mls/hr Documented by: Ropivacaine 200 mg/ Premix 100 mls @ 0 mls/hr EPIDUR ASDIRECTED [facility] Last Admin: 11/14/21 02:02 Dose: 14 mls/hr Documented by: Lidocaine HCl (Lidocaine 1% 20 Ml Mdv) 40 ml INJECT ONETIME PRN PRN Reason: Laceration repair Methylergonovine Maleate (Methylergonovine 0.2 Mg/1 Ml Amp) 0.2 mg IM ASDIRECTED PRN PRN Reason: Post Hemorrhage Miscellaneous Medication (Phenylephrine Hcl In 0.9% Nacl 1 Mg/10 Ml Syringe) 0.1 mg IVPUSH Q1M PRN PRN Reason: Hypotension Misoprostol (Misoprostol 200 Mcg Tab) 200 mcg PO ONETIME PRN PRN Reason: Post Hemorrhage Ondansetron HCl (Ondansetron 4 Mg/2 Ml Sdv) 4 mg IVPUSH Q6H PRN PRN Reason: Nausea/Vomiting Last Admin: 11/14/21 03:16 Dose: 4 mg Documented by: Sodium Chloride (Sodium Chloride 0.9% 10 Ml Syringe) 10 ml FLUSH ASDIRECTED PRN PRN Reason: Keep Vein Open Sodium Chloride (Sodium Chloride 0.9% 2.5 Ml Syringe) 2.5 ml FLUSH ASDIRECTED PRN PRN Reason: Keep Vein Open Sodium Chloride (Sodium Chloride 0.9% 20 Ml Sdv) 10 ml IV ASDIRECTED PRN PRN Reason: IV Use Sterile Water (Water For Irrigation,Sterile 1,000 Ml Container) 1,000 ml IRR ASDIRECTED PRN PRN Reason: delivery Terbutaline Sulfate (Terbutaline 1 Mg/Ml Sdv) 0.25 mg SUBCUT ASDIRECTED PRN PRN Reason: Tacysystole Discontinued Medications Acetaminophen (Acetaminophen 500 Mg Tab) 1,000 mg PO ONETIME ONE Stop: 11/13/21 19:44 Last Admin: 11/13/21 19:53 Dose: 1,000 mg Documented by: Acetaminophen (Acetaminophen 500 Mg Tab) Confirm Administered Dose 1,000 mg .ROUTE .STK-MED ONE Stop: 11/13/21 19:47 Ampicillin Sodium 2 gm/ Sodium (Chloride) 100 mls @ 200 mls/hr IV ONETIME ONE Stop: 11/13/21 08:29 Last Admin: 11/13/21 08:40 Dose: 200 mls/hr Documented by: Ropivacaine (Naropin 0.2%) Confirm Administered Dose 100 mls @ as directed .ROUTE .STK-MED ONE Stop: 11/13/21 13:55 - Problem List Review Problem List Initiated/Reviewed/Updated: Yes - My Orders Last 24 Hours: My Active Orders 11/13/21 20:07 GROUP B STREP BY PCR [MOLEC] Routine 11/13/21 23:55 Acetaminophen [Tylenol Extra Strength] 1,000 mg PO Q6H PRN 11/14/21 05:46 Patient Status [ADT] Routine May Shower [RC] ASDIRECTED Up ad Montse [RC] ASDIRECTED Vital Signs [RC] PER UNIT ROUTINE Acetaminophen [Tylenol Extra Strength] 1,000 mg PO Q4H PRN Acetaminophen [Tylenol Extra Strength] 500 mg PO Q4H PRN Benzocaine/Menthol [Dermoplast Pain Relief 20%-0.5% [place]] 78 gm TOP ASDIREC JENN PRN Docusate Sodium [Colace] 100 mg PO Q12H PRN Ibuprofen [Motrin] 400 mg PO Q4H PRN Ibuprofen [Motrin] 800 mg PO Q6H PRN Lanolin [Lansinoh HPA] See Dose Instructions TOP ASDIRECTED PRN bisacodyL [Dulcolax] 10 mg RECTAL ONETIME PRN oxyCODONE 5 mg PO Q2H PRN witch [place] [Tucks] 1 pad TOP ASDIRECTED PRN Assess Lochia [WOMSER] Per Unit Routine Assess Uterine Involution [WOMSER] Per Unit Routine Peripheral IV Discontinue [OM.PC] Routine 11/15/21 05:11 HEMOGLOBIN/HEMATOCRIT,HH [HEME] Timed - Assessment Assessment:: 31 year old PPD0 s/p spontaneous vaginal delivery - Plan Plan:: Routine cares * Rh positive, rubella immune * GBS positive, received 2 doses of IV antibiotics prior to AROM * PO pain medications ordered PRN * Regular diet as tolerated * Encourage ambulation and fluid intake when able * Plans to breastfeed, nursing assistance as needed Chronic hypertension * VSS, BP normotensive during labor * Asymptomatic * Continue Labetalol 100mg BID Dispo: stable. Admit to floor and anticipate routine course.
[2021-11-14] MEDS: Ibuprofen 800 MG Tab PO PRN ×3 (06:12→22:27)
[2021-11-14] MEDS: oxyCODONE 5 MG Tab PO PRN ×3 (06:54→19:22)
--- NOTE | 2021-11-14 07:39 | OR ---
SURGEON: NANY WILCOX MD DATE OF PROCEDURE: 11/14/2021 PREOPERATIVE DIAGNOSES: 1. Term intrauterine at 39 weeks and 1 day. 2. Chronic hypertension. 3. Maternal obesity. POSTOPERATIVE DIAGNOSES: 1. Term intrauterine at 39 weeks and 1 day. 2. Chronic hypertension. 3. Maternal obesity. PRIMARY SURGEON: Nany Wilcox MD. PROCEDURE: Spontaneous vaginal delivery. ANESTHESIA: Epidural. ANESTHESIOLOGIST: Demond Holloway CRNA. ESTIMATED BLOOD LOSS: 300 mL. COMPLICATIONS: Unknown. FINDINGS: Viable female in cephalic presentation. score of 7 at one minute and 9 at five minutes. Weight of 3850 g. Spontaneous delivery, intact placenta, 3-vessel cord, clear amniotic fluid. DISPOSITION: Patient in LDRP with . PROCEDURE DETAILS: The patient is a 31-year-old, 5, para 2-0-2-2 at 39 weeks and 1 day, who started Pitocin induction on 11/13/2021 due to complicated by chronic hypertension, which has been managed with oral medication. The patient was also found to be group B strep positive and received 2 doses of IV antibiotics prior to rupture of membranes on 11/13/2021. Labor progressed slowly overnight and I was notified at approximately 0505 hours on the morning of 11/14/2021 that the patient was completely dilated and feeling the urge to push. I presented to the patient's room shortly thereafter and she was placed in the modified dorsal lithotomy position. She began pushing efforts and pushed with good descent over 1 contraction. 's head delivered atraumatically. No nuchal cord was noted. Anterior shoulder, posterior shoulder and remainder of the body were then delivered without difficulty. The 's oropharynx and nares were then bulb suctioned. Infant was then handed off to mother with attending nursery staff at the side. After a delay, the cord was clamped and cut. Arterial, venous, and cord blood gases were then obtained. Light pressure was applied while the placenta was delivered spontaneously intact. Vigorous fundal uterine massage was then applied with 30 units of Pitocin that was delivered in 500 mL of IV fluid. Upon inspection of the cervix, vaginal sidewalls and perineum, there were no lacerations noted. Hemostasis appeared evident. Uterus remained firm. Sponge, lap, and needle count were correct. Patient was recovering in Labor and Delivery room with the infant at this time. GISEL CHAIDEZ /[id number] KEITH
[2021-11-14] MEDS: Labetalol 100 MG Tab PO SCH ×2 (09:13→21:01)
--- NOTE | 2021-11-14 10:14 | PCM48HPAN ---
Post Anesthesia Note - EVALUATION WITHIN 48HRS OF ANESTHETIC Vital Signs in Normal Range: Yes Patient Participated in Evaluation: Yes Respiratory Function Stable: Yes Airway Patent: Yes Cardiovascular Function Stable: Yes Hydration Status Stable: Yes Pain Control Satisfactory: Yes Nausea and Vomiting Control Satisfactory: Yes Mental Status Recovered: Yes Vital Signs: Last Vital Signs Temp Pulse 111 H 11/14/21 09:13 Resp 20 11/14/21 01:07 BP 129/72 11/14/21 09:13 Pulse Ox - COMMENTS/OBSERVATIONS Free Text/Narrative:: Patient states epidural provided adequate analgesia for labor and delivery. Patient denies residual numbness or weakness an denies signs and symptoms of infection.
[2021-11-14] MEDS: Acetaminophen 500 MG Tab PO PRN ×2 (11:02→22:28)
[2021-11-14] MEDS: Sertraline 50 MG Tab PO SCH (21:01)
[2021-11-15] MEDS: Ibuprofen 800 MG Tab PO PRN ×3 (04:33→20:48)
[2021-11-15] MEDS: Acetaminophen 500 MG Tab PO PRN ×2 (04:34→13:09)
[2021-11-15] MEDS: oxyCODONE 5 MG Tab PO PRN ×4 (06:06→23:46)
--- NOTE | 2021-11-15 09:48 | PCM.PNPP ---
- General Info Date of Service: 11/15/21 Functional Status: Reports: Pain Controlled, Tolerating Diet, Ambulating, Urinating - Review of Systems General: Reports: Fatigue. Denies: Fever, Weakness Pulmonary: Denies: Shortness of Breath Cardiovascular: Denies: Chest Pain, Palpitations, Lightheadedness Gastrointestinal: Denies: Abdominal Pain, Nausea, Vomiting Genitourinary: Denies: Flank Pain Musculoskeletal: Reports: No Symptoms Skin: Reports: No Symptoms Neurological: Reports: No Symptoms Psychiatric: Reports: No Symptoms - General Info Date of Service: 11/15/21 - Patient Data Vital Signs - Most Recent: Last Vital Signs Temp 35.9 C L 11/15/21 08:00 Pulse 64 11/15/21 08:00 Resp 18 11/15/21 08:00 BP 105/49 L 11/15/21 08:00 Pulse Ox 99 11/15/21 08:00 Weight - Most Recent: 103.419 kg Lab Results - Last 24 Hours: Laboratory Results - last 24 hr 11/13/21 11/15/21 Range/Units 08:18 04:57 Hgb 10.2 L (12.0-16.0) g/dL Hct 30.1 L (36.0-46.0) % RPR Non-Reac (Non-Reac) Med Orders - Current: Current Medications Acetaminophen (Acetaminophen 500 Mg Tab) 1,000 mg PO Q6H PRN PRN Reason: Headache Last Admin: 11/14/21 00:03 Dose: 1,000 mg Documented by: Acetaminophen (Acetaminophen 500 Mg Tab) 500 mg PO Q4H PRN PRN Reason: Pain (mild 1-3) Acetaminophen (Acetaminophen 500 Mg Tab) 1,000 mg PO Q4H PRN PRN Reason: Pain (mild 1-3) Last Admin: 11/15/21 04:34 Dose: 1,000 mg Documented by: Benzocaine/Menthol (Benzocaine/Menthol 20%-0.5% [place] 78 Gm Cannister) 78 gm TOP ASDIRECTED PRN PRN Reason: Perineal Comfort Measure Last Admin: 11/14/21 14:29 Dose: 1 can Documented by: Bisacodyl (Bisacodyl 10 Mg Supp) 10 mg RECTAL ONETIME PRN PRN Reason: Constipation Butorphanol Tartrate (Butorphanol 1 Mg/Ml Sdv) 1 mg IVPUSH Q1H PRN PRN Reason: Pain (severe 7-10) Carboprost Tromethamine (Carboprost Tromethamine 250 Mcg/1 Ml Amp) 250 mcg IM ASDIRECTED PRN PRN Reason: Post Hemorrhage Docusate Sodium (Docusate Sodium 100 Mg Cap) 100 mg PO Q12H PRN PRN Reason: Constipation Emollient Ointment (Lanolin 100% Cream 7 Gm Tube) 0 gm TOP ASDIRECTED PRN PRN Reason: Sore Nipples Ephedrine Sulfate (Ephedrine 50 Mg/Ml Sdv) 10 mg IVPUSH Q1M PRN PRN Reason: Hypotension Oxytocin/Sodium Chloride (Oxytocin 30 Unit In Ns 0.9% 500 Ml Premix) 30 unit in 500 mls @ 999 mls/hr IV TITRATE COUNTS INCLUDE 234 BEDS AT THE [facility] Last Admin: 11/14/21 05:52 Dose: 999 mls/hr Documented by: Tranexamic Acid 1,000 mg/ (Sodium Chloride) 110 mls @ 660 mls/hr IV ONETIME PRN PRN Reason: Bleeding Oxytocin/Sodium Chloride (Oxytocin 30 Unit In Ns 0.9% 500 Ml Premix) 30 unit in 500 mls @ 2 mls/hr IV TITRATE COUNTS INCLUDE 234 BEDS AT THE [facility]; Protocol Last Titration: 11/14/21 03:52 Dose: 26 munits/min, 26 mls/hr Documented by: Ampicillin Sodium 1 gm/ Sodium (Chloride) 50 mls @ 100 mls/hr IV Q4H COUNTS INCLUDE 234 BEDS AT THE [facility] Last Admin: 11/14/21 14:27 Dose: Not Given Documented by: Lactated Ringer's (Ringers, Lactated) 1,000 mls @ 150 mls/hr IV ASDIRECTED COUNTS INCLUDE 234 BEDS AT THE [facility] Last Admin: 11/14/21 00:47 Dose: 150 mls/hr Documented by: Ropivacaine 200 mg/ Premix 100 mls @ 0 mls/hr EPIDUR ASDIRECTED COUNTS INCLUDE 234 BEDS AT THE [facility] Last Admin: 11/14/21 02:02 Dose: 14 mls/hr Documented by: Ibuprofen (Ibuprofen 400 Mg Tab) 400 mg PO Q4H PRN PRN Reason: Pain (mild 1-3) Ibuprofen (Ibuprofen 800 Mg Tab) 800 mg PO Q6H PRN PRN Reason: Cramping Last Admin: 11/15/21 04:33 Dose: 800 mg Documented by: Labetalol HCl (Labetalol 100 Mg Tab) 100 mg PO BID COUNTS INCLUDE 234 BEDS AT THE [facility] Last Admin: 11/14/21 21:01 Dose: 100 mg Documented by: Lidocaine HCl (Lidocaine 1% 20 Ml Mdv) 40 ml INJECT ONETIME PRN PRN Reason: Laceration repair Methylergonovine Maleate (Methylergonovine 0.2 Mg/1 Ml Amp) 0.2 mg IM ASDIRECTED PRN PRN Reason: Post Hemorrhage Miscellaneous Medication (Phenylephrine Hcl In 0.9% Nacl 1 Mg/10 Ml Syringe) 0.1 mg IVPUSH Q1M PRN PRN Reason: Hypotension Misoprostol (Misoprostol 200 Mcg Tab) 200 mcg PO ONETIME PRN PRN Reason: Post Hemorrhage Ondansetron HCl (Ondansetron 4 Mg/2 Ml Sdv) 4 mg IVPUSH Q6H PRN PRN Reason: Nausea/Vomiting Last Admin: 11/14/21 03:16 Dose: 4 mg Documented by: Oxycodone HCl (Oxycodone 5 Mg Tab) 5 mg PO Q2H PRN PRN Reason: Pain (severe 7-10) Last Admin: 11/15/21 06:06 Dose: 5 mg Documented by: Pantoprazole Sodium (Pantoprazole 40 Mg Tab.Cr) 20 mg PO ACBREAKFAST COUNTS INCLUDE 234 BEDS AT THE [facility] Sertraline HCl (Sertraline 50 Mg Tab) 50 mg PO DAILY COUNTS INCLUDE 234 BEDS AT THE [facility] Last Admin: 11/14/21 21:01 Dose: 50 mg Documented by: Sodium Chloride (Sodium Chloride 0.9% 10 Ml Syringe) 10 ml FLUSH ASDIRECTED PRN PRN Reason: Keep Vein Open Sodium Chloride (Sodium Chloride 0.9% 2.5 Ml Syringe) 2.5 ml FLUSH ASDIRECTED PRN PRN Reason: Keep Vein Open Sodium Chloride (Sodium Chloride 0.9% 20 Ml Sdv) 10 ml IV ASDIRECTED PRN PRN Reason: IV Use Sterile Water (Water For Irrigation,Sterile 1,000 Ml Container) 1,000 ml IRR ASDIRECTED PRN PRN Reason: delivery Terbutaline Sulfate (Terbutaline 1 Mg/Ml Sdv) 0.25 mg SUBCUT ASDIRECTED PRN PRN Reason: Tacysystole [place] (Witch [place] Medicated Pads 40/Jar) 1 pad TOP ASDIRECTED PRN PRN Reason: comfort care Last Admin: 11/14/21 14:29 Dose: 1 container Documented by: Discontinued Medications Acetaminophen (Acetaminophen 500 Mg Tab) 1,000 mg PO ONETIME ONE Stop: 11/13/21 19:44 Last Admin: 11/13/21 19:53 Dose: 1,000 mg Documented by: Acetaminophen (Acetaminophen 500 Mg Tab) Confirm Administered Dose 1,000 mg .ROUTE .STK-MED ONE Stop: 11/13/21 19:47 Ampicillin Sodium 2 gm/ Sodium (Chloride) 100 mls @ 200 mls/hr IV ONETIME ONE Stop: 11/13/21 08:29 Last Admin: 11/13/21 08:40 Dose: 200 mls/hr Documented by: Ropivacaine (Naropin 0.2%) Confirm Administered Dose 100 mls @ as directed .ROUTE .STK-MED ONE Stop: 11/13/21 13:55 - Infant Interaction Support Person: Significant Other - Recovery Exam Fundal Tone: Firm Fundal Level: At Umbilicus Fundal Placement: Midline Lochia Amount: Scant Lochia Color: Rubra/Red Perineum Description: Intact, Minimal Bruising/Swelling Episiotomy/Laceration: None Bladder Status: Voiding Urinary Elimination: Voided - Exam General: Alert, Oriented Lungs: Normal Respiratory Effort Cardiovascular: Regular Rate, Regular Rhythm GI/Abdominal Exam: Soft, Non-Tender Extremities: Pedal Edema (trace). No: Lucius's Sign Skin: Warm, Dry, Intact Neurological: No New Focal Deficit Psy/Mental Status: Alert, Normal Affect, Normal Mood - Problem List & Annotations (1) Vaginal delivery SNOMED Code(s): 118518765 Code(s): O80 - ENCOUNTER FOR FULL-TERM UNCOMPLICATED DELIVERY Status: Acute Current Visit: Yes - Problem List Review Problem List Initiated/Reviewed/Updated: Yes - My Orders Last 24 Hours: My Active Orders 11/15/21 09:45 Ready for Discharge [RC] PER UNIT ROUTINE - Assessment Assessment:: 31 year old PPD1 s/p spontaneous vaginal delivery Chronic hypertension - Plan Plan:: Doing well overall, VS are stable. Continues labetalol 100 mg bid. Patient would like to go home today. Discharge instructions reviewed. Follow up at [facility] 4 weeks. .
[2021-11-15] MEDS: Sertraline 50 MG Tab PO SCH ×3 (10:09→20:45)
[2021-11-15] MEDS: Labetalol 100 MG Tab PO SCH ×2 (10:11→20:45)
[2021-11-15] MEDS: Pantoprazole 40 MG Tab.CR PO SCH (10:11)
[2021-11-15] MEDS: Docusate Sodium 100 MG Cap PO PRN ×2 (13:08→20:46)
[2021-11-16] MEDS: Ibuprofen 800 MG Tab PO PRN (04:48)
[2021-11-16] MEDS: Acetaminophen 500 MG Tab PO PRN (06:29)
[2021-11-16] MEDS: Pantoprazole 40 MG Tab.CR PO SCH (08:51)
[2021-11-16] MEDS: Docusate Sodium 100 MG Cap PO PRN (09:44)
[2021-11-16] MEDS: Sertraline 50 MG Tab PO SCH (09:55)
[2021-11-16] MEDS: Labetalol 100 MG Tab PO SCH (10:00)
--- NOTE | 2021-11-16 10:10 | PCM.PNPP ---
- General Info Date of Service: 11/16/21 Functional Status: Reports: Pain Controlled, Tolerating Diet, Ambulating, Urinating - Review of Systems General: Reports: Fatigue. Denies: Fever, Weakness Pulmonary: Denies: Shortness of Breath Cardiovascular: Denies: Chest Pain, Palpitations, Lightheadedness Gastrointestinal: Denies: Abdominal Pain, Nausea, Vomiting Genitourinary: Reports: No Symptoms Musculoskeletal: Reports: No Symptoms Skin: Reports: No Symptoms Neurological: Reports: No Symptoms Psychiatric: Reports: No Symptoms - General Info Date of Service: 11/16/21 - Patient Data Vital Signs - Most Recent: Last Vital Signs Temp 36.0 C L 11/16/21 07:55 Pulse 85 11/16/21 07:55 Resp 18 11/16/21 07:55 BP 130/74 11/16/21 07:55 Pulse Ox 98 11/16/21 07:55 Weight - Most Recent: 103.419 kg Med Orders - Current: Current Medications Acetaminophen (Acetaminophen 500 Mg Tab) 1,000 mg PO Q6H PRN PRN Reason: Headache Last Admin: 11/14/21 00:03 Dose: 1,000 mg Documented by: Acetaminophen (Acetaminophen 500 Mg Tab) 500 mg PO Q4H PRN PRN Reason: Pain (mild 1-3) Acetaminophen (Acetaminophen 500 Mg Tab) 1,000 mg PO Q4H PRN PRN Reason: Pain (mild 1-3) Last Admin: 11/16/21 06:29 Dose: 1,000 mg Documented by: Benzocaine/Menthol (Benzocaine/Menthol 20%-0.5% [place] 78 Gm Cannister) 78 gm TOP ASDIRECTED PRN PRN Reason: Perineal Comfort Measure Last Admin: 11/14/21 14:29 Dose: 1 can Documented by: Bisacodyl (Bisacodyl 10 Mg Supp) 10 mg RECTAL ONETIME PRN PRN Reason: Constipation Butorphanol Tartrate (Butorphanol 1 Mg/Ml Sdv) 1 mg IVPUSH Q1H PRN PRN Reason: Pain (severe 7-10) Carboprost Tromethamine (Carboprost Tromethamine 250 Mcg/1 Ml Amp) 250 mcg IM ASDIRECTED PRN PRN Reason: Post Hemorrhage Docusate Sodium (Docusate Sodium 100 Mg Cap) 100 mg PO Q12H PRN PRN Reason: Constipation Last Admin: 11/16/21 09:44 Dose: 100 mg Documented by: Emollient Ointment (Lanolin 100% Cream 7 Gm Tube) 0 gm TOP ASDIRECTED PRN PRN Reason: Sore Nipples Ephedrine Sulfate (Ephedrine 50 Mg/Ml Sdv) 10 mg IVPUSH Q1M PRN PRN Reason: Hypotension Oxytocin/Sodium Chloride (Oxytocin 30 Unit In Ns 0.9% 500 Ml Premix) 30 unit in 500 mls @ 999 mls/hr IV TITRATE [facility] Last Admin: 11/14/21 05:52 Dose: 999 mls/hr Documented by: Tranexamic Acid 1,000 mg/ (Sodium Chloride) 110 mls @ 660 mls/hr IV ONETIME PRN PRN Reason: Bleeding Oxytocin/Sodium Chloride (Oxytocin 30 Unit In Ns 0.9% 500 Ml Premix) 30 unit in 500 mls @ 2 mls/hr IV TITRATE [facility]; Protocol Last Titration: 11/14/21 03:52 Dose: 26 munits/min, 26 mls/hr Documented by: Ampicillin Sodium 1 gm/ Sodium (Chloride) 50 mls @ 100 mls/hr IV Q4H [facility] Last Admin: 11/14/21 14:27 Dose: Not Given Documented by: Lactated Ringer's (Ringers, Lactated) 1,000 mls @ 150 mls/hr IV ASDIRECTED [facility] Last Admin: 11/14/21 00:47 Dose: 150 mls/hr Documented by: Ropivacaine 200 mg/ Premix 100 mls @ 0 mls/hr EPIDUR ASDIRECTED [facility] Last Admin: 11/14/21 02:02 Dose: 14 mls/hr Documented by: Ibuprofen (Ibuprofen 400 Mg Tab) 400 mg PO Q4H PRN PRN Reason: Pain (mild 1-3) Ibuprofen (Ibuprofen 800 Mg Tab) 800 mg PO Q6H PRN PRN Reason: Cramping Last Admin: 11/16/21 04:48 Dose: 800 mg Documented by: Labetalol HCl (Labetalol 100 Mg Tab) 100 mg PO BID [facility] Last Admin: 11/16/21 10:00 Dose: Not Given Documented by: Lidocaine HCl (Lidocaine 1% 20 Ml Mdv) 40 ml INJECT ONETIME PRN PRN Reason: Laceration repair Methylergonovine Maleate (Methylergonovine 0.2 Mg/1 Ml Amp) 0.2 mg IM ASDIRECTED PRN PRN Reason: Post Hemorrhage Miscellaneous Medication (Phenylephrine Hcl In 0.9% Nacl 1 Mg/10 Ml Syringe) 0.1 mg IVPUSH Q1M PRN PRN Reason: Hypotension Misoprostol (Misoprostol 200 Mcg Tab) 200 mcg PO ONETIME PRN PRN Reason: Post Hemorrhage Ondansetron HCl (Ondansetron 4 Mg/2 Ml Sdv) 4 mg IVPUSH Q6H PRN PRN Reason: Nausea/Vomiting Last Admin: 11/14/21 03:16 Dose: 4 mg Documented by: Oxycodone HCl (Oxycodone 5 Mg Tab) 5 mg PO Q2H PRN PRN Reason: Pain (severe 7-10) Last Admin: 11/15/21 23:46 Dose: 5 mg Documented by: Pantoprazole Sodium (Pantoprazole 40 Mg Tab.Cr) 20 mg PO ACBREAKFAST [facility] Last Admin: 11/16/21 08:51 Dose: Not Given Documented by: Sertraline HCl (Sertraline 50 Mg Tab) 50 mg PO DAILY [facility] Last Admin: 11/16/21 09:55 Dose: Not Given Documented by: Sodium Chloride (Sodium Chloride 0.9% 10 Ml Syringe) 10 ml FLUSH ASDIRECTED PRN PRN Reason: Keep Vein Open Sodium Chloride (Sodium Chloride 0.9% 2.5 Ml Syringe) 2.5 ml FLUSH ASDIRECTED PRN PRN Reason: Keep Vein Open Sodium Chloride (Sodium Chloride 0.9% 20 Ml Sdv) 10 ml IV ASDIRECTED PRN PRN Reason: IV Use Sterile Water (Water For Irrigation,Sterile 1,000 Ml Container) 1,000 ml IRR ASDIRECTED PRN PRN Reason: delivery Terbutaline Sulfate (Terbutaline 1 Mg/Ml Sdv) 0.25 mg SUBCUT ASDIRECTED PRN PRN Reason: Tacysystole [place] ([place] Medicated Pads 40/Jar) 1 pad TOP ASDIRECTED PRN PRN Reason: comfort care Last Admin: 11/14/21 14:29 Dose: 1 container Documented by: Discontinued Medications Acetaminophen (Acetaminophen 500 Mg Tab) 1,000 mg PO ONETIME ONE Stop: 11/13/21 19:44 Last Admin: 11/13/21 19:53 Dose: 1,000 mg Documented by: Acetaminophen (Acetaminophen 500 Mg Tab) Confirm Administered Dose 1,000 mg .ROUTE .STK-MED ONE Stop: 11/13/21 19:47 Ampicillin Sodium 2 gm/ Sodium (Chloride) 100 mls @ 200 mls/hr IV ONETIME ONE Stop: 11/13/21 08:29 Last Admin: 11/13/21 08:40 Dose: 200 mls/hr Documented by: Ropivacaine (Naropin 0.2%) Confirm Administered Dose 100 mls @ as directed .ROUTE .STK-MED ONE Stop: 11/13/21 13:55 - Interaction Support Person: Significant Other - Recovery Exam Fundal Tone: Firm Fundal Level: 1 Fingerbreadths Below Umbilicus Fundal Placement: Midline Lochia Amount: Scant Lochia Color: Rubra/Red Perineum Description: Intact, Minimal Bruising/Swelling Episiotomy/Laceration: None Bladder Status: Voiding Urinary Elimination: Voided - Exam General: Alert, Oriented Neck: Supple Lungs: Normal Respiratory Effort Cardiovascular: Regular Rate, Regular Rhythm GI/Abdominal Exam: Normal Bowel Sounds, Soft, Non-Tender Extremities: Pedal Edema (1+). No: Lucius's Sign Skin: Warm, Dry, Intact Neurological: No New Focal Deficit Psy/Mental Status: Alert, Normal Affect, Normal Mood - Problem List & Annotations (1) Vaginal delivery SNOMED Code(s): 555225581 Code(s): O80 - ENCOUNTER FOR FULL-TERM UNCOMPLICATED DELIVERY Status: Acute Current Visit: Yes - Problem List Review Problem List Initiated/Reviewed/Updated: Yes - My Orders Last 24 Hours: My Active Orders 11/16/21 10:09 Ready for Discharge [RC] PER UNIT ROUTINE - Assessment Assessment:: 31 year old PPD2 s/p spontaneous vaginal delivery Chronic hypertension - Plan Plan:: Doing well overall, VS are stable. Continues labetalol 100 mg bid. Patient would like to go home today. Discharge instructions reviewed. Follow up at [facility] 4 weeks. Patient will monitor BP at home and call with any concerns, parameters reviewed. .
[2021-11-16] MEDS: oxyCODONE 5 MG Tab PO PRN (11:39)
== END 2021-11-16 12:00 | disposition home or self-care (01) | DRG 807 ==
LOC: MW.OBCHECK 07:27 → MW.OB 07:29 → MW.OBCHECK 07:38 → OBSVTOIN 11-14 05:27 → MW.OB 11-14 16:00
PROVIDERS: ADMIT Obstetrics & Gynecology; ATTEND Obstetrics & Gynecology
PROC: 10E0XZZ Delivery of Products of Conception, External Approach (ICD-10-PCS; principal; 2021-11-14)
PROC: 3E0R3BZ Introduction of Anesthetic Agent into Spinal Canal, Percutaneous Approach (ICD-10-PCS; 2021-11-14)
PROC: 00HU33Z Insertion of Infusion Device into Spinal Canal, Percutaneous Approach (ICD-10-PCS; 2021-11-14)
PROC: 10907ZC Drainage of Amniotic Fluid, Therapeutic from Products of Conception, Via Natural or Artificial Opening (ICD-10-PCS; 2021-11-14)
PROC: 10H07YZ Insertion of Other Device into Products of Conception, Via Natural or Artificial Opening (ICD-10-PCS; 2021-11-14)
DX: O10.92 Unspecified pre-existing hypertension complicating childbirth (principal); Z37.0 Single live birth; O99.824 Streptococcus B carrier state complicating childbirth; Z3A.39 39 weeks gestation of pregnancy; Z20.822 Contact with and (suspected) exposure to COVID-19
CPT/HCPCS: 01967; 36415; 82803; 85014; 85018; 85027; 86592; 86850; 86900; 86901; A9270-GY; J0290; J2405; J2590; J2795; J7120; U0002

== ENCOUNTER 2022-01-25 10:36 | Emergency (ER) | payer MEDICAID ==
[2022-01-25] MEDS ORDERED: Sodium Chloride 0.9% 10 ML Syringe FLUSH PRN (10:41)
[2022-01-25] MEDS ORDERED: Sodium Chloride 0.9% 2.5 ML Syringe FLUSH PRN (10:41)
[2022-01-25] MEDS ORDERED: Sodium Chloride 0.9% 1,000 ML IV ONE ×2 (10:42→17:12)
[2022-01-25] MEDS ORDERED: Tranexamic Acid 1,000 MG in Sodium Chloride 0.9% 500 ML IV ONE (10:43)
[2022-01-25] MEDS ORDERED: Tranexamic Acid 1,000 MG in Sodium Chloride 0.9% 100 ML IV ONE (11:00)
[2022-01-25 11:25] LABS: BLOOD UREA NITROGEN,BUN 10 mg/dL (7.0-18.0); CARBON DIOXIDE,CO2 19.7 mmol/L (21.0-32.0); CHLORIDE,CL 102 mmol/L (98-107); ESTIMATED GFR > 60.0 ml/min; GLUCOSE RANDOM 104 mg/dL (74-106); POTASSIUM,K 4.4 mmol/L (3.5-5.1); SODIUM,NA 137 mmol/L (136-145)
[2022-01-25] MEDS ORDERED: HYDROmorphone 1 MG/ML Syringe IVPUSH ONE ×2 (11:53→13:26)
[2022-01-25 12:08] LABS: CORONAVIRUS COVID-19 NAA NEGATIVE (NEGATIVE); INFLUENZA A NAA NEGATIVE (NEGATIVE); INFLUENZA B NAA NEGATIVE (NEGATIVE)
[2022-01-25] MEDS ORDERED: Lidocaine 1% 5 ML VIAL INJECT ONE ×2 (13:36)
[2022-01-25] MEDS ORDERED: Lidocaine 1% 5 ML VIAL ONE (13:36)
[2022-01-25] MEDS ORDERED: Ondansetron 4 MG/2 ML SDV IVPUSH ONE (14:48)
== END 2022-01-25 19:05 | disposition home or self-care (01) ==
LOC: MW.ED 10:36
DX: S31.41XA Laceration without foreign body of vagina and vulva, initial encounter (principal); I10 Essential (primary) hypertension; K21.9 Gastro-esophageal reflux disease without esophagitis; Z20.822 Contact with and (suspected) exposure to COVID-19; Z88.1 Allergy status to other antibiotic agents
CPT/HCPCS: 0240U; 36415; 76856; 80053; 83735; 84702; 85025; 85384; 85610; 85730; 86850; 86900; 86901; 86920; 96374; 96375; 96376; 99284; J1170; J2405; J7030; J3490